=== PATIENT | male | born 1960 | race Two or more races ===

== ENCOUNTER 2019-09-18 13:53 | Emergency (ER) | payer BC ==
[2019-09-18] MEDS ORDERED: cefTRIAXone 1 GM in Premix Bag 1 BAG IV ONE (17:21)
[2019-09-18] MEDS ORDERED: Sodium Chloride 0.9% 1,000 ML IV ONE (17:21)
[2019-09-18] MEDS ORDERED: Sodium Chloride 0.9% 2.5 ML Syringe FLUSH PRN (17:21)
[2019-09-18] MEDS ORDERED: Sodium Chloride 0.9% 10 ML Syringe FLUSH PRN (17:21)
--- NOTE | 2019-09-18 17:32 | EDM.PDOC ---
ED HPI GENERAL MEDICAL PROBLEM - General Chief Complaint: Fever Stated Complaint: FEVER, FREQUENT URINATION Time Seen by Provider: 09/18/19 17:21 - History of Present Illness INITIAL COMMENTS - FREE TEXT/NARRATIVE: History of present illness: 59-year-old male presenting with not feeling well since this morning. Fever, T- max 102 when he arrived here. Has had some urinary symptoms and was recently treated for UTI by his primary care doctor. Also reports some flank pain/back pain and some blood in his urine. Has not yet been worked up for that. No body aches, cough, dyspnea, chest pain or other infectious signs or symptoms. Review of systems: As per history of present illness and below otherwise all systems reviewed and negative. Past medical history: As per history of present illness and as reviewed below otherwise noncontributory. Surgical history: As per history of present illness and as reviewed below otherwise noncontributory. Social history: No reported history of drug or alcohol abuse. Family history: As per history of present illness and as reviewed below otherwise noncontributory. Physical exam: GEN: no acute distress, well appearing HEENT: Atraumatic, normocephalic, mucous membranes moist, Neck: supple, nontender, trachea midline. Lungs: No respiratory distress. Heart: RRR Abdomen: Soft, nondistended, nontender. Back: nontender. No CVA tenderness. Extremities: Atraumatic. Neurovascularly intact. Neuro: Awake, alert, oriented. Neuro Exam nonfocal. Skin: warm, dry, no lesions Diagnostics: [] Therapeutics: [] MDM: Impression: [] Plan: [] Definitive disposition and diagnosis as appropriate pending reevaluation and review of above. burning with urination Pain Score (Numeric/FACES): 10 - Related Data Allergies Allergy/AdvReac Type Severity Reaction Status Date / Time No Known Allergies Allergy Verified 09/18/19 14:29 Home Meds: Home Meds Allopurinol [Zyloprim] 150 mg PO DAILY 09/18/19 [History] cephALEXin [Keflex] 1,000 mg PO BID #40 cap 09/18/19 [Rx] lisinopriL [Lisinopril] 20 mg PO DAILY 09/18/19 [History] Past Medical History Cardiovascular History: Reports: Hypertension Musculoskeletal History: Reports: Gout Endocrine/Metabolic History: Reports: Obesity/BMI 30+ - Past Surgical History HEENT Surgical History: Reports: Other (See Below) Social & Family History - Family History Family Medical History: Noncontributory - Tobacco Use Smoking Status *Q: Never Smoker - Recreational Drug Use Recreational Drug Use: No - Living Situation & Occupation Living situation: Reports: , with Spouse, with Family (Stepdaughter and her 5 children) Occupation: Employed (dedicated local truck driver) ED ROS GENERAL - Review of Systems Review Of Systems: See Below (See HPI) ED EXAM, GENERAL - Physical Exam Exam: See Below (See HPI) Course - Vital Signs Text/Narrative:: Fever, chills, dysuria, recent UTI 1 month ago. Also had some flank pain. Fever on arrival here as well. WBC is elevated, however creatinine is not elevated. UA does show moderate leuk esterase, nitrates, and white blood cells although few bacteria. Suspect partially treated UTI. Reviewed prior culture results and patient had E. coli on urine culture in July 2019 sensitive to cephalosporins. Overall well-appearing. Given IV fluids and Rocephin here. Chest x-ray negative. CT scan shows no acute kidney stones no acute intra-abdominal findings but possible remote kidney injury. Will refer for urology and primary care follow-up as patient has no local doctor here. Last Recorded V/S: Last Vital Signs Temp 98.9 F 09/18/19 20:35 Pulse 105 H 09/18/19 20:35 Resp 20 09/18/19 20:35 BP 111/77 09/18/19 20:35 Pulse Ox 92 L 09/18/19 20:35 - Orders/Labs/Meds Orders: Active Orders 24 hr Category Date Time Status CULTURE BLOOD [BC] Stat Lab 09/18/19 17:45 Received CULTURE BLOOD [BC] Stat Lab 09/18/19 17:45 Received CULTURE URINE [RM] Stat Lab 09/18/19 14:38 Received Blood Culture x2 Reflex Set [OM.PC] Stat Oth 09/18/19 17:22 Ordered Saline Lock Insert [OM.PC] Stat Oth 09/18/19 17:21 Ordered Labs: Laboratory Tests 09/18/19 09/18/19 09/18/19 Range/Units 14:38 17:45 17:45 WBC 12.79 H (4.0-11.0) K/uL RBC 4.96 (4.50-5.90) M/uL Hgb 14.5 (13.0-17.0) g/dL Hct 44.1 (38.0-50.0) % MCV 88.9 (80.0-98.0) fL MCH 29.2 (27.0-32.0) pg MCHC 32.9 (31.0-37.0) g/dL RDW Std Deviation 48.5 (28.0-62.0) fl RDW Coeff of Neville 15 (11.0-15.0) % Plt Count 205 (150-400) K/uL MPV 10.10 (7.40-12.00) fL Neut % (Auto) 84.5 H (48.0-80.0) % Lymph % (Auto) 6.1 L (16.0-40.0) % Smith % (Auto) 9.2 (0.0-15.0) % Eos % (Auto) 0.1 (0.0-7.0) % Baso % (Auto) 0.1 (0.0-1.5) % Neut # (Auto) 10.8 H (1.4-5.7) K/uL Lymph # (Auto) 0.8 (0.6-2.4) K/uL Smith # (Auto) 1.2 H (0.0-0.8) K/uL Eos # (Auto) 0.0 (0.0-0.7) K/uL Baso # (Auto) 0.0 (0.0-0.1) K/uL Nucleated RBC % 0.0 /100WBC Nucleated RBCs # 0 K/uL Sodium 133 L (136-148) mmol/L Potassium 4.0 (3.5-5.1) mmol/L Chloride 98 (98-107) mmol/L Carbon Dioxide 24.1 (21.0-32.0) mmol/L BUN 22 H (7.0-18.0) mg/dL Creatinine 1.3 (0.8-1.3) mg/dL Est Cr Clr Drug Dosing 61.61 mL/min Estimated GFR (MDRD) 56.1 ml/min Glucose 153 H (74-106) mg/dL Calcium 9.3 (8.5-10.1) mg/dL Total Bilirubin 0.8 (0.2-1.0) mg/dL AST 48 H (15-37) IU/L ALT 86 H (14-63) IU/L Alkaline Phosphatase 104 (46-116) U/L Total Protein 7.6 (6.4-8.2) g/dL Albumin 4.1 (3.4-5.0) g/dL Globulin 3.5 (2.6-4.0) g/dL Albumin/Globulin Ratio 1.2 (0.9-1.6) Urine Color YELLOW Urine Appearance SLT CLOUDY Urine pH 5.5 (5.0-8.0) Ur Specific Coulter 1.020 (1.001-1.035) Urine Protein TRACE H (NEGATIVE) mg/dL Urine Glucose (UA) NEGATIVE (NEGATIVE) mg/dL Urine Ketones NEGATIVE (NEGATIVE) mg/dL Urine Occult Blood SMALL H (NEGATIVE) Urine Nitrite POSITIVE H (NEGATIVE) Urine Bilirubin NEGATIVE (NEGATIVE) Urine Urobilinogen 0.2 (<2.0) EU/dL Ur Leukocyte Esterase MODERATE H (NEGATIVE) Urine RBC 5-8 (0-2/HPF) Urine WBC 50-60 (0-5/HPF) Ur Epithelial Cells RARE (NONE-FEW) Urine Bacteria FEW (NEGATIVE) Meds: Medications Discontinued Medications Generic Name Dose Route Start Last Admin Trade Name Freq PRN Reason Stop Dose Admin Sodium Chloride 1,000 mls @ 999 mls/hr 09/18/19 17:21 09/18/19 17:48 Normal Saline IV 09/18/19 18:21 999 mls/hr .Bolus ONE Administration Ceftriaxone Sodium/Dextrose 1 50 mls @ 100 mls/hr 09/18/19 17:21 09/18/19 17:48 gm/ Premix IV 09/18/19 17:50 100 mls/hr ONETIME ONE Administration Sodium Chloride 10 ml 09/18/19 17:21 09/18/19 17:48 Saline Flush FLUSH 10 ml ASDIRECTED PRN Administration Keep Vein Open Sodium Chloride 2.5 ml 09/18/19 17:21 09/18/19 17:48 Saline Flush FLUSH 2.5 ml ASDIRECTED PRN Administration Keep Vein Open - Re-Assessments/Exams Free Text/Narrative Re-Assessment/Exam: 09/18/19 20:02 Patient resting comfortably and in no acute distress. Discussed results with patient, he is feeling well and would like to be discharged. HR 100 on bedside monitor. Discussed plan of care directly with patient, including recommendation for PCP and urology f/u and need for abx including full completion. No signs of sepsis. Stable for d.c. Departure - Departure Time of Disposition: 20:15 Disposition: Home, Self-Care 01 Clinical Impression: UTI (urinary tract infection) - Discharge Information Prescriptions: cephALEXin [Keflex] 1,000 mg PO BID #40 cap Instructions: Antibiotic Medicine, Adult, [id number], Urinary Tract Infection, Adult, [id number], Infection Prevention in the Home, Fever, Adult, [id number] Referrals: Rizwan Gallagher MD [Primary Care Provider] - Forms: ED Department Discharge Additional Instructions: Take the antibiotics until all pills are gone. Drink plenty of water. Return to the ER if you have a high fever. Please follow-up with 1 of the primary clinics listed below. Please follow-up with the urologist listed below. The following information is given to patients seen in the emergency department who are being discharged to home. This information is to outline your options for follow-up care. We provide all patients seen in our emergency department with a follow-up referral. The need for follow-up, as well as the timing and circumstances, are variable depending upon the specifics of your emergency department visit. If you don't have a primary care physician on staff, we will provide you with a referral. We always advise you to contact your personal physician following an emergency department visit to inform them of the circumstance of the visit and for follow-up with them and/or the need for any referrals to a consulting sp ecialist. The emergency department will also refer you to a specialist when appropriate. This referral assures that you have the opportunity for follow-up care with a specialist. All of these measure are taken in an effort to provide you with optimal care, which includes your follow-up. Under all circumstances we always encourage you to contact your private physician who remains a resource for coordinating your care. When calling for follow-up care, please make the office aware that this follow-up is from your recent emergency room visit. If for any reason you are refused follow-up, please contact the [facility] Emergency Department at and asked to speak to the emergency department charge nurse. [facility] - Primary Care [address] [place] [id number] [facility] [address] [place] [address] [facility] [place] - Urology [address] [place] [address] Sepsis Event Note (ED) - Evaluation Sepsis Screening Result: No Definite Risk - Focused Exam Vital Signs: Vital Signs Temp Temp Pulse Resp BP Pulse Ox 09/18/19 20:35 98.9 F 105 H 20 111/77 92 L 09/18/19 19:15 99.3 F 105 H 20 111/72 94 L 09/18/19 17:31 98.6 F 112 H 18 134/82 96 09/18/19 14:26 102.8 F H 122 H 18 139/74 94 L - My Orders Last 24 Hours: My Active Orders 09/18/19 17:21 Saline Lock Insert [OM.PC] Stat 09/18/19 17:22 Blood Culture x2 Reflex Set [OM.PC] Stat 09/18/19 17:45 CULTURE BLOOD [BC] Stat CULTURE BLOOD [BC] Stat - Assessment/Plan Last 24 Hours: My Active Orders 09/18/19 17:21 Saline Lock Insert [OM.PC] Stat 09/18/19 17:22 Blood Culture x2 Reflex Set [OM.PC] Stat 09/18/19 17:45 CULTURE BLOOD [BC] Stat CULTURE BLOOD [BC] Stat
[2019-09-18 18:18] LABS: CARBON DIOXIDE,CO2 24.1 mmol/L (21.0-32.0)
--- NOTE | 2019-09-18 18:45 | CT ---
HISTORY: Hematuria. TECHNIQUE: Noncontrast CT abdomen and pelvis. COMPARISON: No prior. FINDINGS: There is no renal, ureteral or urinary bladder calculus. No hydronephrosis. On the left, there are areas of renal cortical parenchymal volume loss compatible with remote insult. Slight perinephric stranding. Urinary bladder does not appear overly distended. Prostatic calcifications may be postinflammatory. - There is fatty infiltration of the liver. Spleen size within normal limits. Adrenal glands are normal. No focal pancreatic abnormality. - No small bowel obstruction. No appendicitis. No diverticulitis. - No fluid collection or free intraperitoneal air. - No abdominal aortic aneurysm. - Degenerative changes of the spine. 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 Degenerative changes of the sacroiliac joints and hips. - No consolidation within the lung bases nor pleural effusion. IMPRESSION: 1. No urinary calculi. 2. No hydronephrosis. 3. On the left, there are areas of renal parenchymal volume loss compatible with remote insult. 4. Fatty infiltration of the liver. Dictated by Partha Mendoza MD @ 09/18/2019 6:43:46 PM Please note that all CT scans at this facility use dose modulation, iterative reconstruction, and/or weight-based dosing when appropriate to reduce radiation dose to as low as reasonably achievable. Dictated by: Partha Mendoza MD @ 09/18/2019 18:44:05 (Electronically Signed)
--- NOTE | 2019-09-18 18:47 | CR ---
HISTORY: Fever. TECHNIQUE: Two views of the chest. COMPARISON: No prior. FINDINGS: No focal lung infiltrate. No pulmonary edema. No pneumothorax or pleural effusion. Cardiac size and pulmonary vasculature are within normal limits. IMPRESSION: No acute disease. Dictated by Partha Mendoza MD @ 09/18/2019 6:45:43 PM Dictated by: Partha Mendoza MD @ 09/18/2019 18:45:48 (Electronically Signed)
[2019-09-18 19:16] VITALS: PULSE 105
[2019-09-18 21:05] VITALS: BP 111/77
== END 2019-09-18 20:35 | disposition home or self-care (01) ==
LOC: MW.ED 13:53
DX: N39.0 Urinary tract infection, site not specified (principal); I10 Essential (primary) hypertension; E66.9 Obesity, unspecified; Z68.39 Body mass index [BMI] 39.0-39.9, adult; Z79.899 Other long term (current) drug therapy
CPT/HCPCS: 36415; 71046; 74176; 80053; 81001; 85025; 87040; 87086; 87088; 87186; 96365; 99284; J0696; J7030

== ENCOUNTER 2019-11-07 16:40 | Inpatient (IN) | payer BC, OTHER ==
[2019-11-07] MEDS ORDERED: Sodium Chloride 0.9% 10 ML Syringe FLUSH PRN (16:57)
[2019-11-07] MEDS ORDERED: Sodium Chloride 0.9% 2.5 ML Syringe FLUSH PRN (16:57)
[2019-11-07] MEDS ORDERED: Sodium Chloride 0.9% 1,000 ML IV ONE (17:00)
[2019-11-07 17:41] LABS: CARBON DIOXIDE,CO2 23.7 mmol/L (21.0-32.0); POTASSIUM,K 4.5 mmol/L (3.5-5.1)
[2019-11-07] MEDS ORDERED: Meropenem 1 GM in Sodium Chloride 0.9% 100 ML IV ONE (17:58)
--- NOTE | 2019-11-07 18:01 | CR ---
Chest: PA and lateral views of the chest were obtained. Comparison: Prior chest x-ray of 09/18/19. Heart size and mediastinum are normal. Lungs are clear with no acute parenchymal change. Bony structures are unremarkable. Impression: 1. Nothing acute is seen on 2 view chest x-ray. Diagnostic code #1 This report was dictated in MDT
--- NOTE | 2019-11-07 18:46 | CT ---
CT abdomen and pelvis Technique: Multiple axial sections were obtained from above the dome of the diaphragm inferiorly through the pubic symphysis. Intravenous and oral contrast not utilized. Comparison: Previous CT abdomen and pelvis study of 09/18/19 is available. Findings: Visualized lung bases show nothing acute. Fatty infiltration seen throughout the liver. Spleen appears within normal limits. Adrenal glands show no nodule. Pancreas shows no discrete abnormality. Gallbladder contains no calcified gallstones. Left kidney is atrophied as compared to the right side which is stable. No ureteral dilatation or ureteral calculi are seen. Aorta shows no aneurysm. No retroperitoneal adenopathy or mesenteric abnormalities are seen. Appendix is seen which is normal. No pelvic mass or adenopathy is seen. Prostate calcifications are noted. No free fluid or inflammatory change is seen. No bowel dilatation is appreciated. Bone window settings were reviewed. Degenerative change is noted at L4-5 and L5-S1. 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 These findings are stable from previous exam. Fat-containing umbilical hernia is noted which is stable. Impression: 1. Fatty infiltration within the liver. Other findings as noted above. No significant change from prior CT abdomen and pelvis study. 2. Current study shows no renal calculi, ureteral dilatation or ureteral stone. Nothing acute is appreciated. Diagnostic code #2 This report was dictated in MDT
--- NOTE | 2019-11-07 19:13 | EDM.PDOC ---
ED HPI GENERAL MEDICAL PROBLEM - General Chief Complaint: Fever Stated Complaint: REFER FROM CLINIC, HIGH FEVER Time Seen by Provider: 11/07/19 16:56 Source of Information: Reports: Patient History Limitations: Reports: No Limitations - History of Present Illness INITIAL COMMENTS - FREE TEXT/NARRATIVE: HISTORY AND PHYSICAL: History of present illness: Patient is a 59-year-old male who presents to the ED today from the clinic for concern of kidney infection. Patient did have some lab work and urine done in the clinic before being sent over to the emergency room. Patient states that approximately 1 month ago he had a urinary tract infection and was given antibiotics and went home. Patient states that initially he felt better but over the past 1 to 2 weeks he has began having more low back pain and burning with urination. Patient states he went back to the clinic today and was instructed to come to the emergency room because of his heart rate and he had a fever. Patient states he has not taken anything for his symptoms and denies any other symptoms or concerns. Patient denies chest pain, shortness of breath, or cough. Denies headache, neck stiff ness, change in vision, syncope, or near syncope. Denies nausea, vomiting, abdominal pain, diarrhea, constipation. Has not noted any blood in urine or stool. Patient has been eating and drinking appropriately. Review of systems: As per history of present illness and below otherwise all systems reviewed and negative. Past medical history: As per history of present illness and as reviewed below otherwise non contributory. Surgical history: As per history of present illness and as reviewed below otherwise noncontributory. Social history: See social history for further information Family history: As per history of present illness and as reviewed below otherwise noncontributory. Physical exam: General: Patient is alert, oriented, and in no acute distress. Patient laying comfortably on exam table. HEENT: Atraumatic, normocephalic, pupils equal and reactive bilaterally, negative for conjunctival pallor or scleral icterus, mucous membranes moist, TMs normal bilaterally, throat clear, neck supple, nontender, trachea midline. No drooling or trismus noted. No meningeal signs. No hot potato voice noted. Lungs: Clear to auscultation, breath sounds equal bilaterally, chest nontender. Heart: S1S2, regular rate and rhythm without overt murmur Abdomen: Soft, nondistended, nontender. Negative for masses or hepatosplenomegaly. Positive for costovertebral tenderness of the right. Pelvis: Stable nontender. Genitourinary: Deferred. Rectal: Deferred. Skin: Intact, warm, dry. No lesions or rashes noted. Extremities: Atraumatic, negative for cords or calf pain. Neurovascular unremarkable. Neuro: Awake, alert, oriented. Cranial nerves II through XII unremarkable. Cerebellum unremarkable. Motor and sensory unremarkable throughout. Exam nonfocal. Notes: Patient afebrile here but report from clinic shows temp of 102.4. Urinalysis from the clinic does show an overt urinary tract infection. Empiric antibiotics started at this time. Patient initially tachycardic in 130-140 but does improve with abx and fluids to 100-110 Dr. Howard was contacted and accepting of admission for observation on telemetry. Voices understanding and is agreeable to plan of care. Denies any further questions or concerns at this time. Diagnostics: CBC, CMP, UA, lactate, blood cultures x2, lipase, abdominal pelvic CT without contrast, covid Therapeutics: Saline, meropenem, vancomycin Impression: Acute pyelonephritis r/o sepsis Plan: Admission to observation to Dr. Howard on telemetry Definitive disposition and diagnosis as appropriate pending reevaluation and review of above. bilateral flank Pain Score (Numeric/FACES): 10 - Related Data Allergies Allergy/AdvReac Type Severity Reaction Status Date / Time No Known Allergies Allergy Verified 11/07/19 20:44 Home Meds: Home Meds Allopurinol [Zyloprim] 300 mg PO DAILY 09/18/19 [History] lisinopriL [Lisinopril] 20 mg PO DAILY 09/18/19 [History] Past Medical History Cardiovascular History: Reports: Hypertension Musculoskeletal History: Reports: Gout Endocrine/Metabolic History: Reports: Obesity/BMI 30+ - Past Surgical History HEENT Surgical History: Reports: Other (See Below) Social & Family History - Family History Family Medical History: Noncontributory - Tobacco Use Smoking Status *Q: Never Smoker - Recreational Drug Use Recreational Drug Use: No - Living Situation & Occupation Living situation: Reports: , with Spouse, with Family (Stepdaughter and her 5 children) Occupation: Employed ([employer] flatbed truck driver) ED ROS GENERAL - Review of Systems Review Of Systems: Comprehensive ROS is negative, except as noted in HPI. ED EXAM, GENERAL - Physical Exam Exam: See Below (see dictation) Course - Vital Signs Last Recorded V/S: Last Vital Signs Temp 99.4 F 11/07/19 20:42 Pulse 114 H 11/07/19 20:42 Resp 18 11/07/19 20:42 BP 118/67 11/07/19 20:42 Pulse Ox 99 11/07/19 20:42 - Orders/Labs/Meds Orders: Active Orders 24 hr Category Date Time Status EKG Documentation Completion [RC] STAT Care 11/07/19 17:53 Active CULTURE URINE [RM] Stat Lab 11/07/19 20:00 Received Sodium Chloride 0.9% [Saline Flush] Med 11/07/19 16:57 Active 10 ml FLUSH ASDIRECTED PRN Sodium Chloride 0.9% [Saline Flush] Med 11/07/19 16:57 Active 2.5 ml FLUSH ASDIRECTED PRN Blood Culture x2 Reflex Set [OM.PC] Stat Ot 11/07/19 16:59 Ordered Saline Lock Insert [OM.PC] Stat Ot 11/07/19 16:57 Ordered Medication Orders Acetaminophen (Tylenol) 650 mg PO Q4H PRN PRN Reason: Pain (Mild 1-3)/fever Allopurinol (Zyloprim) 300 mg PO DAILY [facility] Enoxaparin Sodium (Lovenox) 40 mg SUBCUT Q24H [facility] Last Admin: 11/07/19 21:08 Dose: 40 mg Documented by: MIGUEL ANGEL Lactated Ringer's (Ringers, Lactated) 1,000 mls @ 125 mls/hr IV ASDIRECTED [facility] Last Admin: 11/07/19 21:09 Dose: 125 mls/hr Documented by: MIGUEL ANGEL Piperacillin Sod/Tazobactam (Sod 3.375 gm/ Sodium Chloride) 50 mls @ 100 mls/hr IV Q8H [facility] Last Admin: 11/07/19 21:39 Dose: 100 mls/hr Documented by: MIGUEL ANGEL Morphine Sulfate (Morphine) 2 mg IVPUSH Q4H PRN PRN Reason: Pain (severe 7-10) Stop: 11/08/19 20:04 Ondansetron HCl (Zofran) 4 mg IVPUSH Q4H PRN PRN Reason: Nausea/Vomiting Sodium Chloride (Saline Flush) 10 ml FLUSH ASDIRECTED PRN PRN Reason: Keep Vein Open Last Admin: 11/07/19 17:06 Dose: 10 ml Documented by: MAVERICK Sodium Chloride (Saline Flush) 2.5 ml FLUSH ASDIRECTED PRN PRN Reason: Keep Vein Open Last Admin: 11/07/19 17:06 Dose: 2.5 ml Documented by: [email or web address] Labs: Laboratory Tests 11/07/19 11/07/19 11/07/19 Range/Units 17:00 17:00 17:00 WBC 15.02 H (4.0-11.0) K/uL RBC 4.99 (4.50-5.90) M/uL Hgb 14.7 (13.0-17.0) g/dL Hct 44.2 (38.0-50.0) % MCV 88.6 (80.0-98.0) fL MCH 29.5 (27.0-32.0) pg MCHC 33.3 (31.0-37.0) g/dL RDW Std Deviation 48.1 (28.0-62.0) fl RDW Coeff of Neville 15 (11.0-15.0) % Plt Count 263 (150-400) K/uL MPV 10.30 (7.40-12.00) fL Neut % (Auto) 82.7 H (48.0-80.0) % Lymph % (Auto) 4.9 L (16.0-40.0) % Blanco % (Auto) 12.0 (0.0-15.0) % Eos % (Auto) 0.2 (0.0-7.0) % Baso % (Auto) 0.2 (0.0-1.5) % Neut # (Auto) 12.4 H (1.4-5.7) K/uL Lymph # (Auto) 0.7 (0.6-2.4) K/uL Blanco # (Auto) 1.8 H (0.0-0.8) K/uL Eos # (Auto) 0.0 (0.0-0.7) K/uL Baso # (Auto) 0.0 (0.0-0.1) K/uL Nucleated RBC % 0.0 /100WBC Nucleated RBCs # 0 K/uL Lactate 1.4 (0.20-2.00) mmol/L Sodium 133 L (136-148) mmol/L Potassium 4.5 (3.5-5.1) mmol/L Chloride 97 L (98-107) mmol/L Carbon Dioxide 23.7 (21.0-32.0) mmol/L BUN 20 H (7.0-18.0) mg/dL Creatinine 1.3 (0.8-1.3) mg/dL Est Cr Clr Drug Dosing 61.61 mL/min Estimated GFR (MDRD) 56.1 ml/min Glucose 126 H (74-106) mg/dL Calcium 8.5 (8.5-10.1) mg/dL Total Bilirubin 1.0 (0.2-1.0) mg/dL AST 27 (15-37) IU/L ALT 54 (14-63) IU/L Alkaline Phosphatase 114 (46-116) U/L Total Protein 7.9 (6.4-8.2) g/dL Albumin 3.5 (3.4-5.0) g/dL Globulin 4.4 H (2.6-4.0) g/dL Albumin/Globulin Ratio 0.8 L (0.9-1.6) Lipase 82 (73-393) U/L SARS Virus RNA (PCR) (NEGATIVE) 11/07/19 Range/Units 18:15 WBC (4.0-11.0) K/uL RBC (4.50-5.90) M/uL Hgb (13.0-17.0) g/dL Hct (38.0-50.0) % MCV (80.0-98.0) fL MCH (27.0-32.0) pg MCHC (31.0-37.0) g/dL RDW Std Deviation (28.0-62.0) fl RDW Coeff of Neville (11.0-15.0) % Plt Count (150-400) K/uL MPV (7.40-12.00) fL Neut % (Auto) (48.0-80.0) % Lymph % (Auto) (16.0-40.0) % Blanco % (Auto) (0.0-15.0) % Eos % (Auto) (0.0-7.0) % Baso % (Auto) (0.0-1.5) % Neut # (Auto) (1.4-5.7) K/uL Lymph # (Auto) (0.6-2.4) K/uL Blanco # (Auto) (0.0-0.8) K/uL Eos # (Auto) (0.0-0.7) K/uL Baso # (Auto) (0.0-0.1) K/uL Nucleated RBC % /100WBC Nucleated RBCs # K/uL Lactate (0.20-2.00) mmol/L Sodium (136-148) mmol/L Potassium (3.5-5.1) mmol/L Chloride (98-107) mmol/L Carbon Dioxide (21.0-32.0) mmol/L BUN (7.0-18.0) mg/dL Creatinine (0.8-1.3) mg/dL Est Cr Clr Drug Dosing mL/min Estimated GFR (MDRD) ml/min Glucose (74-106) mg/dL Calcium (8.5-10.1) mg/dL Total Bilirubin (0.2-1.0) mg/dL AST (15-37) IU/L ALT (14-63) IU/L Alkaline Phosphatase (46-116) U/L Total Protein (6.4-8.2) g/dL Albumin (3.4-5.0) g/dL Globulin (2.6-4.0) g/dL Albumin/Globulin Ratio (0.9-1.6) Lipase (73-393) U/L SARS Virus RNA (PCR) NEGATIVE (NEGATIVE) Meds: Medications Generic Name Dose Route Start Last Admin Trade Name Freq PRN Reason Stop Dose Admin Acetaminophen 650 mg 11/07/19 20:01 Tylenol PO Q4H PRN Pain (Mild 1-3)/fever Allopurinol 300 mg 11/08/19 09:00 Zyloprim PO DAILY [facility] Enoxaparin Sodium 40 mg 11/07/19 20:15 11/07/19 21:08 Lovenox SUBCUT 40 mg Q24H [facility] Administration Lactated Ringer's 1,000 mls @ 125 mls/hr 11/07/19 20:15 11/07/19 21:09 Ringers, Lactated IV 125 mls/hr ASDIRECTED [facility] Administration Piperacillin Sod/Tazobactam 50 mls @ 100 mls/hr 11/07/19 22:00 11/07/19 21:39 Sod 3.375 gm/ Sodium Chloride IV 100 mls/hr Q8H [facility] Administration Morphine Sulfate 2 mg 11/07/19 20:01 Morphine IVPUSH 11/08/19 20:04 Q4H PRN Pain (severe 7-10) Ondansetron HCl 4 mg 11/07/19 20:01 Zofran IVPUSH Q4H PRN Nausea/Vomiting Sodium Chloride 10 ml 11/07/19 16:57 11/07/19 17:06 Saline Flush FLUSH 10 ml ASDIRECTED PRN Administration Keep Vein Open Sodium Chloride 2.5 ml 11/07/19 16:57 11/07/19 17:06 Saline Flush FLUSH 2.5 ml ASDIRECTED PRN Administration Keep Vein Open Discontinued Medications Generic Name Dose Route Start Last Admin Trade Name Freq PRN Reason Stop Dose Admin Sodium Chloride 1,000 mls @ 999 mls/hr 11/07/19 17:00 11/07/19 17:06 Normal Saline IV 11/07/19 18:00 999 mls/hr STAT ONE Administration Meropenem 1 gm/ Sodium 100 mls @ 200 mls/hr 11/07/19 17:58 11/07/19 18:35 Chloride IV 11/07/19 18:27 200 mls/hr ONETIME ONE Administration Vancomycin HCl 1.25 gm/ Sodium 250 mls @ 167 mls/hr 11/07/19 17:59 Chloride IV 11/07/19 19:28 ONETIME ONE Vancomycin HCl 1.25 gm/ Sodium 250 mls @ 167 mls/hr 11/07/19 18:02 11/07/19 18:36 Chloride IV 11/07/19 19:31 167 mls/hr ONETIME ONE Administration Ceftriaxone Sodium/Dextrose 1 50 mls @ 100 mls/hr 11/08/19 09:00 gm/ Premix IV Q24H [facility] Departure - Departure Time of Disposition: 19:12 Disposition: Refer to Observation Clinical Impression: Acute pyelonephritis - Discharge Information Sepsis Event Note (ED) - Evaluation Sepsis Screening Result: Possible Sepsis Risk - Focused Exam Vital Signs: Vital Signs Temp Pulse Resp BP Pulse Ox 11/07/19 18:38 120/76 11/07/19 17:54 106 H 140/99 H 95 11/07/19 17:09 122 H 117/76 94 L 11/07/19 16:51 97.8 F 138 H 18 138/83 92 L - My Orders Last 24 Hours: My Active Orders 11/07/19 16:57 Sodium Chloride 0.9% [Saline Flush] 10 ml FLUSH ASDIRECTED PRN Sodium Chloride 0.9% [Saline Flush] 2.5 ml FLUSH ASDIRECTED PRN Saline Lock Insert [OM.PC] Stat 11/07/19 16:59 Blood Culture x2 Reflex Set [OM.PC] Stat 11/07/19 17:53 EKG Documentation Completion [RC] STAT 11/07/19 20:00 CULTURE URINE [RM] Stat - Assessment/Plan Last 24 Hours: My Active Orders 11/07/19 16:57 Sodium Chloride 0.9% [Saline Flush] 10 ml FLUSH ASDIRECTED PRN Sodium Chloride 0.9% [Saline Flush] 2.5 ml FLUSH ASDIRECTED PRN Saline Lock Insert [OM.PC] Stat 11/07/19 16:59 Blood Culture x2 Reflex Set [OM.PC] Stat 11/07/19 17:53 EKG Documentation Completion [RC] STAT 11/07/19 20:00 CULTURE URINE [RM] Stat
[2019-11-07] MEDS ORDERED: Ondansetron 4 MG/2 ML SDV IVPUSH PRN (20:01)
[2019-11-07] MEDS ORDERED: Morphine 10 MG/ML Syringe IVPUSH PRN (20:01)
--- NOTE | 2019-11-07 20:11 | PCM.HP.2 ---
H&P History of Present Illness - General Date of Service: 11/07/19 Admit Problem/Dx: Admission Diagnosis/Problem Admission Diagnosis/Problem Acute pyelonephritis - History of Present Illness Initial Comments - Free Text/Narative: Patient is a 59-year-old male with PMH of obesity, gout, HTN who presents to the ED today from her PCPs office due to the concern of "kidney infection". Patient states that he went to clinic where he was told he has a fever (102.4), with high heart rate, his urine analysis was positive for UTI, he was instructed to go to ER. Patient states that approximately 1 month ago he had a urinary tract infection and was given antibiotics. Patient states he responded well to antibiotics but now over past 2 weeks he has began having more low back pain and burning with urination. Patient states he has not taken anything for his symptoms and denies any other symptoms or concerns. Patient denies chest pain, shortness of breath, or cough. Denies headache, neck stiff ness, change in vision, syncope, or near syncope. Denies nausea, vomiting, abdominal pain, diarrhea, constipation. Has not noted any blood in urine or stool. Patient has been eating and drinking appropriately. In the ER lab work shows leucocytosis, with elevated heart rate in 130s, received IV fluids and IV antibiotics, CT abdomen showed no stone or blockage, did show fatty liver. He was admitted for further management. bilateral flank Pain Score (Numeric/FACES): 10 - Related Data Allergies/Adverse Reactions: Allergies Allergy/AdvReac Type Severity Reaction Status Date / Time No Known Allergies Allergy Verified 11/07/19 20:44 Home Medications: Home Meds Allopurinol [Zyloprim] 300 mg PO DAILY 09/18/19 [History] lisinopriL [Lisinopril] 20 mg PO DAILY 09/18/19 [History] Past Medical History Cardiovascular History: Reports: Hypertension Musculoskeletal History: Reports: Gout Endocrine/Metabolic History: Reports: Obesity/BMI 30+ - Past Surgical History HEENT Surgical History: Reports: Other (See Below) Social & Family History - Family History Family Medical History: Noncontributory - Tobacco Use Smoking Status *Q: Never Smoker - Recreational Drug Use Recreational Drug Use: No - Living Situation & Occupation Living situation: Reports: , with Spouse, with Family (Stepdaughter and her 5 children) 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 Denies: Incontinence Musculoskeletal: Reports: Back Pain. Denies: Shoulder Pain, Arm Pain Skin: Denies: Cyanosis, Jaundice, Mottled Exam - Exam Exam: See Below - Vital Signs Vital Signs: Last Vital Signs Temp 36.6 C 11/07/19 16:51 Pulse 106 H 11/07/19 17:54 Resp 18 11/07/19 16:51 BP 120/76 11/07/19 18:38 Pulse Ox 95 11/07/19 17:54 Weight: 123.831 kg - Exam General: Alert, Oriented Neck: Supple, Trachea Midline Lungs: Clear to Auscultation, Normal Respiratory Effort Cardiovascular: Regular Rate, Regular Rhythm GI/Abdominal Exam: Normal Bowel Sounds, Soft, Non-Tender. No: No Distention, Abnormal Bowel Sounds - Patient Data Lab Results Last 24 hrs: Laboratory Results - last 24 hr 11/07/19 11/07/19 11/07/19 Range/Units 17:00 17:00 17:00 WBC 15.02 H (4.0-11.0) K/uL RBC 4.99 (4.50-5.90) M/uL Hgb 14.7 (13.0-17.0) g/dL Hct 44.2 (38.0-50.0) % MCV 88.6 (80.0-98.0) fL MCH 29.5 (27.0-32.0) pg MCHC 33.3 (31.0-37.0) g/dL RDW Std Deviation 48.1 (28.0-62.0) fl RDW Coeff of Neville 15 (11.0-15.0) % Plt Count 263 (150-400) K/uL MPV 10.30 (7.40-12.00) fL Neut % (Auto) 82.7 H (48.0-80.0) % Lymph % (Auto) 4.9 L (16.0-40.0) % Baker % (Auto) 12.0 (0.0-15.0) % Eos % (Auto) 0.2 (0.0-7.0) % Baso % (Auto) 0.2 (0.0-1.5) % Neut # (Auto) 12.4 H (1.4-5.7) K/uL Lymph # (Auto) 0.7 (0.6-2.4) K/uL Baker # (Auto) 1.8 H (0.0-0.8) K/uL Eos # (Auto) 0.0 (0.0-0.7) K/uL Baso # (Auto) 0.0 (0.0-0.1) K/uL Nucleated RBC % 0.0 /100WBC Nucleated RBCs # 0 K/uL Lactate 1.4 (0.20-2.00) mmol/L Sodium 133 L (136-148) mmol/L Potassium 4.5 (3.5-5.1) mmol/L Chloride 97 L (98-107) mmol/L Carbon Dioxide 23.7 (21.0-32.0) mmol/L BUN 20 H (7.0-18.0) mg/dL Creatinine 1.3 (0.8-1.3) mg/dL Est Cr Clr Drug Dosing 61.61 mL/min Estimated GFR (MDRD) 56.1 ml/min Glucose 126 H (74-106) mg/dL Calcium 8.5 (8.5-10.1) mg/dL Total Bilirubin 1.0 (0.2-1.0) mg/dL AST 27 (15-37) IU/L ALT 54 (14-63) IU/L Alkaline Phosphatase 114 (46-116) U/L Total Protein 7.9 (6.4-8.2) g/dL Albumin 3.5 (3.4-5.0) g/dL Globulin 4.4 H (2.6-4.0) g/dL Albumin/Globulin Ratio 0.8 L (0.9-1.6) Lipase 82 (73-393) U/L SARS Virus RNA (PCR) (NEGATIVE) 11/07/19 Range/Units 18:15 WBC (4.0-11.0) K/uL RBC (4.50-5.90) M/uL Hgb (13.0-17.0) g/dL Hct (38.0-50.0) % MCV (80.0-98.0) fL MCH (27.0-32.0) pg MCHC (31.0-37.0) g/dL RDW Std Deviation (28.0-62.0) fl RDW Coeff of Neville (11.0-15.0) % Plt Count (150-400) K/uL MPV (7.40-12.00) fL Neut % (Auto) (48.0-80.0) % Lymph % (Auto) (16.0-40.0) % Baker % (Auto) (0.0-15.0) % Eos % (Auto) (0.0-7.0) % Baso % (Auto) (0.0-1.5) % Neut # (Auto) (1.4-5.7) K/uL Lymph # (Auto) (0.6-2.4) K/uL Baker # (Auto) (0.0-0.8) K/uL Eos # (Auto) (0.0-0.7) K/uL Baso # (Auto) (0.0-0.1) K/uL Nucleated RBC % /100WBC Nucleated RBCs # K/uL Lactate (0.20-2.00) mmol/L Sodium (136-148) mmol/L Potassium (3.5-5.1) mmol/L Chloride (98-107) mmol/L Carbon Dioxide (21.0-32.0) mmol/L BUN (7.0-18.0) mg/dL Creatinine (0.8-1.3) mg/dL Est Cr Clr Drug Dosing mL/min Estimated GFR (MDRD) ml/min Glucose (74-106) mg/dL Calcium (8.5-10.1) mg/dL Total Bilirubin (0.2-1.0) mg/dL AST (15-37) IU/L ALT (14-63) IU/L Alkaline Phosphatase (46-116) U/L Total Protein (6.4-8.2) g/dL Albumin (3.4-5.0) g/dL Globulin (2.6-4.0) g/dL Albumin/Globulin Ratio (0.9-1.6) Lipase (73-393) U/L SARS Virus RNA (PCR) NEGATIVE (NEGATIVE) Result Diagrams: 11/08/19 06:08 11/08/19 06:08 Sepsis Event Note - Evaluation Sepsis Screening Result: Possible Sepsis Risk - Focused Exam Vital Signs: Vital Signs Temp Pulse Resp BP Pulse Ox 11/07/19 18:38 120/76 11/07/19 17:54 106 H 140/99 H 95 11/07/19 17:09 122 H 117/76 94 L 11/07/19 16:51 36.6 C 138 H 18 138/83 92 L - Problem List (1) Acute pyelonephritis SNOMED Code(s): 44407095 ICD Code: N10 - ACUTE PYELONEPHRITIS Status: Acute Current Visit: Yes (2) Obesity SNOMED Code(s): 574315023, 403249048 ICD Code: E66.9 - OBESITY, UNSPECIFIED Status: Acute Current Visit: Yes (3) Gout SNOMED Code(s): 52304339 ICD Code: M10.9 - GOUT, UNSPECIFIED Status: Acute Current Visit: Yes (4) HTN (hypertension) SNOMED Code(s): 78756586 ICD Code: I10 - ESSENTIAL (PRIMARY) HYPERTENSION Status: Acute Current Visit: Yes Problem List Initiated/Reviewed/Updated: Yes Orders Last 24hrs: Active Orders 24 hr Category Date Time Status Admission Status [Patient Status] [ADT] Stat ADT 11/07/19 19:00 Active Ambulate [RC] ASDIRECTED Care 11/07/19 20:01 Ordered Antiembolic Devices [RC] PER UNIT ROUTINE Care 11/07/19 20:04 Ordered EKG Documentation Completion [RC] STAT Care 11/07/19 17:53 Active Oxygen Therapy [RC] PRN Care 11/07/19 20:01 Ordered Pulse Oximetry [RC] PRN Care 11/07/19 20:04 Ordered VTE/DVT Education [RC] PER UNIT ROUTINE Care 11/07/19 20:01 Ordered Vital Signs [RC] Q4H Care 11/07/19 20:01 Ordered Abdomen Pelvis wo Cont [CT] Stat Exams 11/07/19 17:53 Taken UA RFX ARTI AND CULT IF INDIC [URIN] Stat Lab 11/07/19 Ordered Acetaminophen [TylenoL] Med 11/07/19 20:01 Ordered 650 mg PO Q4H PRN Enoxaparin [Lovenox] Med 11/07/19 20:15 Ordered 40 mg SUBCUT Q24H Lactated Ringers @ 125 MLS/HR(1000ml) Med 11/07/19 20:15 Ordered Lactated Ringers [Ringers, Lactated] 1,000 ml IV ASDIRECTED Morphine Med 11/07/19 20:01 Ordered 2 mg IVPUSH Q4H PRN Ondansetron [Zofran] Med 11/07/19 20:01 Ordered 4 mg IVPUSH Q4H PRN Sodium Chloride 0.9% [Saline Flush] Med 11/07/19 16:57 Active 10 ml FLUSH ASDIRECTED PRN Sodium Chloride 0.9% [Saline Flush] Med 11/07/19 16:57 Active 2.5 ml FLUSH ASDIRECTED PRN cefTRIAXone [Rocephin in Dextrose,Iso-Osm 1 GM/50 ML] 1 Med 11/08/19 09:00 Ordered gm Premix Bag 1 bag IV Q24H Blood Culture x2 Reflex Set [OM.PC] Stat Oth 11/07/19 16:59 Ordered Saline Lock Insert [OM.PC] Stat Oth 11/07/19 16:57 Ordered Sequential Compression Device [OM.PC] Per Unit Routine Oth 11/07/19 20:04 Ordered Resuscitation Status Routine Resus Stat 11/07/19 20:01 Ordered Medication Orders Acetaminophen (Tylenol) 650 mg PO Q4H PRN PRN Reason: Pain (Mild 1-3)/fever Enoxaparin Sodium (Lovenox) 40 mg SUBCUT Q24H [facility] Lactated Ringer's (Ringers, Lactated) 1,000 mls @ 125 mls/hr IV ASDIRECTED [facility] Ceftriaxone Sodium/Dextrose 1 (gm/ Premix) 50 mls @ 100 mls/hr IV Q24H [facility] Morphine Sulfate (Morphine) 2 mg IVPUSH Q4H PRN PRN Reason: Pain (severe 7-10) Stop: 11/08/19 20:04 Ondansetron HCl (Zofran) 4 mg IVPUSH Q4H PRN PRN Reason: Nausea/Vomiting Sodium Chloride (Saline Flush) 10 ml FLUSH ASDIRECTED PRN PRN Reason: Keep Vein Open Last Admin: 11/07/19 17:06 Dose: 10 ml Documented by: MAVERICK Sodium Chloride (Saline Flush) 2.5 ml FLUSH ASDIRECTED PRN PRN Reason: Keep Vein Open Last Admin: 11/07/19 17:06 Dose: 2.5 ml Documented by: MAVERICK Assessment/Plan Comment:: 59 y/o M Admitted for Acute pyelonephritis, sepsis cont IV antibiotics F/u on urine culture and blood culture Lactate normal Tachycardia improved significantly cont IV fluids Cardiac diet Hold antihypertensives over night cont other home meds SCD for dvt ppx Full code
[2019-11-07] MEDS: Enoxaparin 40 MG/0.4 ML Syringe SUBCUT SCH (21:08)
[2019-11-07] MEDS: Lactated Ringers 1,000 ML IV SCH (21:09)
[2019-11-07] MEDS: Piperacillin/Tazobactam 3.375 GM in Sodium Chloride 0.9% 50 ML IV SCH (21:39)
[2019-11-08] MEDS: Acetaminophen 325 MG Tab PO PRN ×4 (01:55→21:20)
[2019-11-08] MEDS: Piperacillin/Tazobactam 3.375 GM in Sodium Chloride 0.9% 50 ML IV SCH ×3 (06:03→21:23)
[2019-11-08 06:33] LABS: BLOOD UREA NITROGEN,BUN 17 mg/dL (7.0-18.0); CARBON DIOXIDE,CO2 22.9 mmol/L (21.0-32.0); CHLORIDE,CL 100 mmol/L (98-107); GLUCOSE RANDOM 111 mg/dL (74-106); POTASSIUM,K 4.1 mmol/L (3.5-5.1); SODIUM,NA 135 mmol/L (136-148)
[2019-11-08] MEDS: Allopurinol 300 MG Tab PO SCH (08:39)
[2019-11-08] MEDS ORDERED: cefTRIAXone 1 GM in Premix Bag 1 BAG IV SCH (09:00)
[2019-11-08] MEDS: Lactated Ringers 1,000 ML IV SCH ×2 (10:09→18:46)
--- NOTE | 2019-11-08 10:31 | PCM.PN ---
- General Info Date of Service: 11/08/19 Admission Dx/Problem (Free Text): Admission Diagnosis/Problem Admission Diagnosis/Problem Acute Complicated UTI suspected pyelonephritis vs prostatitis Subjective Update: Feeling slightly improved from overnight. No chest pain or SOB. Voiding better, reports yesterday stream was weak and now he is urinating very easily. No flank pain. No diarrhea. Eating and drinking ok. Functional Status: Reports: Pain Controlled, Tolerating Diet, Ambulating, Urinating - Review of Systems General: Reports: Fever, Fatigue, Malaise HEENT: Reports: No Symptoms, Other (no neck pain). Denies: Sore Throat Pulmonary: Reports: No Symptoms. Denies: Shortness of Breath Cardiovascular: Reports: No Symptoms. Denies: Chest Pain Gastrointestinal: Reports: No Symptoms. Denies: Abdominal Pain, Nausea, Vomiting Genitourinary: Reports: Dysuria, Burning. Denies: Flank Pain Musculoskeletal: Reports: No Symptoms Neurological: Reports: No Symptoms Psychiatric: Reports: No Symptoms - Patient Data Vitals - Most Recent: Last Vital Signs Temp 99.7 F 11/08/19 08:40 Pulse 94 11/08/19 07:45 Resp 18 11/08/19 07:45 BP 112/66 11/08/19 07:45 Pulse Ox 93 L 11/08/19 07:45 Weight - Most Recent: 123.831 kg I&O - Last 24 Hours: Intake & Output 11/07/19 11/08/19 11/08/19 22:59 06:59 14:59 Intake Total 926 Output Total 700 Balance 226 Lab Results Last 24 Hours: Laboratory Results - last 24 hr 11/07/19 11/07/19 11/07/19 Range/Units 17:00 17:00 17:00 WBC 15.02 H (4.0-11.0) K/uL RBC 4.99 (4.50-5.90) M/uL Hgb 14.7 (13.0-17.0) g/dL Hct 44.2 (38.0-50.0) % MCV 88.6 (80.0-98.0) fL MCH 29.5 (27.0-32.0) pg MCHC 33.3 (31.0-37.0) g/dL RDW Std Deviation 48.1 (28.0-62.0) fl RDW Coeff of Neville 15 (11.0-15.0) % Plt Count 263 (150-400) K/uL MPV 10.30 (7.40-12.00) fL Neut % (Auto) 82.7 H (48.0-80.0) % Lymph % (Auto) 4.9 L (16.0-40.0) % [place] % (Auto) 12.0 (0.0-15.0) % Eos % (Auto) 0.2 (0.0-7.0) % Baso % (Auto) 0.2 (0.0-1.5) % Neut # (Auto) 12.4 H (1.4-5.7) K/uL Lymph # (Auto) 0.7 (0.6-2.4) K/uL [place] # (Auto) 1.8 H (0.0-0.8) K/uL Eos # (Auto) 0.0 (0.0-0.7) K/uL Baso # (Auto) 0.0 (0.0-0.1) K/uL Nucleated RBC % 0.0 /100WBC Nucleated RBCs # 0 K/uL Lactate 1.4 (0.20-2.00) mmol/L Sodium 133 L (136-148) mmol/L Potassium 4.5 (3.5-5.1) mmol/L Chloride 97 L (98-107) mmol/L Carbon Dioxide 23.7 (21.0-32.0) mmol/L BUN 20 H (7.0-18.0) mg/dL Creatinine 1.3 (0.8-1.3) mg/dL Est Cr Clr Drug Dosing 61.61 mL/min Estimated GFR (MDRD) 56.1 ml/min Glucose 126 H (74-106) mg/dL Calcium 8.5 (8.5-10.1) mg/dL Total Bilirubin 1.0 (0.2-1.0) mg/dL AST 27 (15-37) IU/L ALT 54 (14-63) IU/L Alkaline Phosphatase 114 (46-116) U/L Total Protein 7.9 (6.4-8.2) g/dL Albumin 3.5 (3.4-5.0) g/dL Globulin 4.4 H (2.6-4.0) g/dL Albumin/Globulin Ratio 0.8 L (0.9-1.6) Lipase 82 (73-393) U/L SARS Virus RNA (PCR) (NEGATIVE) 11/07/19 11/08/19 11/08/19 Range/Units 18:15 06:08 06:08 WBC 13.17 H (4.0-11.0) K/uL RBC 4.31 L (4.50-5.90) M/uL Hgb 12.6 L (13.0-17.0) g/dL Hct 38.4 (38.0-50.0) % MCV 89.1 (80.0-98.0) fL MCH 29.2 (27.0-32.0) pg MCHC 32.8 (31.0-37.0) g/dL RDW Std Deviation 48.9 (28.0-62.0) fl RDW Coeff of Neville 15 (11.0-15.0) % Plt Count 210 (150-400) K/uL MPV 9.60 (7.40-12.00) fL Neut % (Auto) 79.3 (48.0-80.0) % Lymph % (Auto) 9.2 L (16.0-40.0) % [place] % (Auto) 11.2 (0.0-15.0) % Eos % (Auto) 0.1 (0.0-7.0) % Baso % (Auto) 0.2 (0.0-1.5) % Neut # (Auto) 10.5 H (1.4-5.7) K/uL Lymph # (Auto) 1.2 (0.6-2.4) K/uL [place] # (Auto) 1.5 H (0.0-0.8) K/uL Eos # (Auto) 0.0 (0.0-0.7) K/uL Baso # (Auto) 0.0 (0.0-0.1) K/uL Nucleated RBC % 0.0 /100WBC Nucleated RBCs # 0 K/uL Lactate (0.20-2.00) mmol/L Sodium 135 L (136-148) mmol/L Potassium 4.1 (3.5-5.1) mmol/L Chloride 100 (98-107) mmol/L Carbon Dioxide 22.9 (21.0-32.0) mmol/L BUN 17 (7.0-18.0) mg/dL Creatinine 1.2 (0.8-1.3) mg/dL Est Cr Clr Drug Dosing 66.75 mL/min Estimated GFR (MDRD) > 60.0 ml/min Glucose 111 H (74-106) mg/dL Calcium 7.6 L (8.5-10.1) mg/dL Total Bilirubin (0.2-1.0) mg/dL AST (15-37) IU/L ALT (14-63) IU/L Alkaline Phosphatase (46-116) U/L Total Protein (6.4-8.2) g/dL Albumin (3.4-5.0) g/dL Globulin (2.6-4.0) g/dL Albumin/Globulin Ratio (0.9-1.6) Lipase (73-393) U/L SARS Virus RNA (PCR) NEGATIVE (NEGATIVE) Med Orders - Current: Current Medications Acetaminophen (Tylenol) 650 mg PO Q4H PRN PRN Reason: Pain (Mild 1-3)/fever Last Admin: 11/08/19 08:40 Dose: 650 mg Documented by: Allopurinol (Zyloprim) 300 mg PO DAILY [facility] Last Admin: 11/08/19 08:39 Dose: 300 mg Documented by: Enoxaparin Sodium (Lovenox) 40 mg SUBCUT Q24H [facility] Last Admin: 11/07/19 21:08 Dose: 40 mg Documented by: Lactated Ringer's (Ringers, Lactated) 1,000 mls @ 125 mls/hr IV ASDIRECTED [facility] Last Admin: 11/08/19 10:09 Dose: 125 mls/hr Documented by: Piperacillin Sod/Tazobactam (Sod 3.375 gm/ Sodium Chloride) 50 mls @ 100 mls/hr IV Q8H [facility] Last Admin: 11/08/19 06:03 Dose: 100 mls/hr Documented by: Morphine Sulfate (Morphine) 2 mg IVPUSH Q4H PRN PRN Reason: Pain (severe 7-10) Stop: 11/08/19 20:04 Ondansetron HCl (Zofran) 4 mg IVPUSH Q4H PRN PRN Reason: Nausea/Vomiting Sodium Chloride (Saline Flush) 10 ml FLUSH ASDIRECTED PRN PRN Reason: Keep Vein Open Last Admin: 11/07/19 17:06 Dose: 10 ml Documented by: Sodium Chloride (Saline Flush) 2.5 ml FLUSH ASDIRECTED PRN PRN Reason: Keep Vein Open Last Admin: 11/07/19 17:06 Dose: 2.5 ml Documented by: Discontinued Medications Sodium Chloride (Normal Saline) 1,000 mls @ 999 mls/hr IV STAT ONE Stop: 11/07/19 18:00 Last Admin: 11/07/19 17:06 Dose: 999 mls/hr Documented by: Meropenem 1 gm/ Sodium (Chloride) 100 mls @ 200 mls/hr IV ONETIME ONE Stop: 11/07/19 18:27 Last Admin: 11/07/19 18:35 Dose: 200 mls/hr Documented by: Vancomycin HCl 1.25 gm/ Sodium (Chloride) 250 mls @ 167 mls/hr IV ONETIME ONE Stop: 11/07/19 19:28 Vancomycin HCl 1.25 gm/ Sodium (Chloride) 250 mls @ 167 mls/hr IV ONETIME ONE Stop: 11/07/19 19:31 Last Admin: 11/07/19 18:36 Dose: 167 mls/hr Documented by: Ceftriaxone Sodium/Dextrose 1 (gm/ Premix) 50 mls @ 100 mls/hr IV Q24H [facility] - Exam Quality Assessment: DVT Prophylaxis General: Alert, Oriented, Cooperative, No Acute Distress Neck: Supple, Other (no nuchal rigidity) Lungs: Clear to Auscultation, Normal Respiratory Effort Cardiovascular: Regular Rate, Regular Rhythm GI/Abdominal Exam: Normal Bowel Sounds, Soft, Non-Tender, No Organomegaly Extremities: Normal Inspection, Normal Range of Motion, Non-Tender, No Pedal Edema Neurological: No New Focal Deficit Psy/Mental Status: Alert, Normal Affect, Normal Mood Sepsis Event Note - Evaluation Sepsis Screening Result: Sepsis Risk - Focused Exam Vital Signs: Vital Signs Temp Temp Pulse Resp BP Pulse Ox 11/08/19 08:40 99.7 F 11/08/19 07:45 99.2 F 94 18 112/66 93 L 11/08/19 04:00 99.3 F 94 18 100/56 L 95 11/08/19 01:55 101.4 F H 11/08/19 00:01 101.4 F H 114 H 18 120/58 L 98 - Problem List & Annotations (1) Sepsis SNOMED Code(s): 30781358 Code(s): A41.9 - SEPSIS, UNSPECIFIED ORGANISM Status: Acute Current Visit: Yes Qualifiers: Sepsis type: sepsis due to unspecified organism Severe sepsis acute organ dysfunction type: acute renal failure Acute renal failure type: unspecified Severe sepsis shock status: without septic shock (2) Complicated urinary tract infection SNOMED Code(s): 30168390 Code(s): N39.0 - URINARY TRACT INFECTION, SITE NOT SPECIFIED Status: Acute Current Visit: Yes (3) Prostatitis SNOMED Code(s): 9424924 Code(s): N41.9 - INFLAMMATORY DISEASE OF PROSTATE, UNSPECIFIED Status: Suspected Current Visit: Yes (4) Acute pyelonephritis SNOMED Code(s): 10390130 Code(s): N10 - ACUTE PYELONEPHRITIS Status: Suspected Current Visit: Yes (5) Gout SNOMED Code(s): 37171396 Code(s): M10.9 - GOUT, UNSPECIFIED Status: Chronic Current Visit: Yes (6) HTN (hypertension) SNOMED Code(s): 55136354 Code(s): I10 - ESSENTIAL (PRIMARY) HYPERTENSION Status: Chronic Current Visit: Yes Qualifiers: Hypertension type: essential hypertension Qualified Code(s): I10 - Essential (primary) hypertension (7) Obesity SNOMED Code(s): 871147347, 051097334 Code(s): E66.9 - OBESITY, UNSPECIFIED Status: Chronic Current Visit: Yes - Problem List Review Problem List Initiated/Reviewed/Updated: Yes - My Orders Last 24 Hours: My Active Orders 11/08/19 08:16 CULTURE BLOOD [BC] Routine 11/08/19 10:02 Patient Status [ADT] Routine - Plan Plan:: 59 y/o M Admitted for sepsis, acute complicated UTI, suspected pyelonephritis and suspected prostatitis 1. Sepsis secondary to acute complicated UTI likely prostatitis - Sepsis resolved. - BC and UC pending - Improving today, still not 100% feeling better - Leukocytosis improved. - Mild KENDRICK improved as well with IVFs. - Continue Zosyn - Hx of resistant E coli with previous UTI. - Will need referral to Urology as outpatient, but plans to return to [place] after discharge with . I counseled him that with recent UTIs he should see Urologist for concerns of prostatitis. - Rectal exam in clinic did not elicit extreme pain, but he does state urinating yesterday was difficult and today it has improved. - Continue IVFs for now. 2. HTN; - Stable, hold Lisinopril for now. VTE prophylaxis: Lovenox Dispo: will make inpatient today, due to the need for more that 2 midnight stay.
[2019-11-08] MEDS: Enoxaparin 40 MG/0.4 ML Syringe SUBCUT SCH (19:59)
[2019-11-09] MEDS: Lactated Ringers 1,000 ML IV SCH ×2 (03:11→13:29)
[2019-11-09] MEDS: Piperacillin/Tazobactam 3.375 GM in Sodium Chloride 0.9% 50 ML IV SCH ×3 (06:18→21:00)
[2019-11-09] MEDS: Acetaminophen 325 MG Tab PO PRN (06:24)
[2019-11-09 06:49] LABS: CARBON DIOXIDE,CO2 24.6 mmol/L (21.0-32.0); POTASSIUM,K 3.7 mmol/L (3.5-5.1)
[2019-11-09] MEDS ORDERED: Magnesium Sulfate/Water 2 GM in Premix Bag 1 BAG IV ONE (08:24)
[2019-11-09] MEDS: Allopurinol 300 MG Tab PO SCH (08:52)
--- NOTE | 2019-11-09 11:41 | PCM.PN ---
- General Info Date of Service: 11/09/19 - Review of Systems Systems Review Comment:: feeling better, had fever this morning - Patient Data Vitals - Most Recent: Last Vital Signs Temp 36.9 C 11/09/19 08:58 Pulse 97 11/09/19 07:40 Resp 18 11/09/19 07:40 BP 133/73 11/09/19 07:40 Pulse Ox 93 L 11/09/19 07:40 Weight - Most Recent: 123.831 kg I&O - Last 24 Hours: Intake & Output 11/08/19 11/09/19 11/09/19 22:59 06:59 14:59 Intake Total 2404 1632 Output Total 1050 1455 Balance 1354 177 Lab Results Last 24 Hours: Laboratory Results - last 24 hr 11/09/19 11/09/19 Range/Units 05:20 05:20 WBC 8.93 (4.0-11.0) K/uL RBC 4.17 L (4.50-5.90) M/uL Hgb 12.1 L (13.0-17.0) g/dL Hct 37.2 L (38.0-50.0) % MCV 89.2 (80.0-98.0) fL MCH 29.0 (27.0-32.0) pg MCHC 32.5 (31.0-37.0) g/dL RDW Std Deviation 48.9 (28.0-62.0) fl RDW Coeff of Neville 15 (11.0-15.0) % Plt Count 226 (150-400) K/uL MPV 10.30 (7.40-12.00) fL Add Manual Diff YES Neutrophils % (Manual) 73 (48.0-80.0) % Band Neutrophils % 7 % Lymphocytes % (Manual) 12 L (16.0-40.0) % Monocytes % (Manual) 8 (0.0-15.0) % Nucleated RBC % 0.0 /100WBC Absolute Seg Neuts 6.5 H (1.4-5.7) Band Neutrophils # 0.6 Lymphocytes # (Manual) 1.1 (0.6-2.4) Monocytes # (Manual) 0.7 (0.0-0.8) Nucleated RBCs # 0 K/uL Sodium 137 (136-148) mmol/L Potassium 3.7 (3.5-5.1) mmol/L Chloride 101 (98-107) mmol/L Carbon Dioxide 24.6 (21.0-32.0) mmol/L BUN 18 (7.0-18.0) mg/dL Creatinine 1.4 H (0.8-1.3) mg/dL Est Cr Clr Drug Dosing 57.21 mL/min Estimated GFR (MDRD) 51.5 ml/min Glucose 91 (74-106) mg/dL Calcium 8.8 (8.5-10.1) mg/dL Magnesium 1.7 L (1.8-2.4) mg/dL Perez Results Last 24 Hours: Microbiology 11/07/19 00:00 Aerobic Blood Culture - Preliminary Blood NO GROWTH AFTER 1 DAY Anaerobic Blood Culture - Preliminary NO GROWTH AFTER 1 DAY 11/07/19 20:00 Urine Culture - Final Urine, Clean Catch MIXED KAMRAN <1000 CFU/ML Med Orders - Current: Current Medications Acetaminophen (Tylenol) 650 mg PO Q4H PRN PRN Reason: Pain (Mild 1-3)/fever Last Admin: 11/09/19 06:24 Dose: 650 mg Documented by: Allopurinol (Zyloprim) 300 mg PO DAILY [facility] Last Admin: 11/09/19 08:52 Dose: 300 mg Documented by: Enoxaparin Sodium (Lovenox) 40 mg SUBCUT Q24H [facility] Last Admin: 11/08/19 19:59 Dose: 40 mg Documented by: Lactated Ringer's (Ringers, Lactated) 1,000 mls @ 75 mls/hr IV ASDIRECTED [facility] Last Admin: 11/09/19 03:11 Dose: 125 mls/hr Documented by: Piperacillin Sod/Tazobactam (Sod 3.375 gm/ Sodium Chloride) 50 mls @ 100 mls/hr IV Q8H [facility] Last Admin: 11/09/19 06:18 Dose: 100 mls/hr Documented by: Ondansetron HCl (Zofran) 4 mg IVPUSH Q4H PRN PRN Reason: Nausea/Vomiting Sodium Chloride (Saline Flush) 10 ml FLUSH ASDIRECTED PRN PRN Reason: Keep Vein Open Last Admin: 11/07/19 17:06 Dose: 10 ml Documented by: Sodium Chloride (Saline Flush) 2.5 ml FLUSH ASDIRECTED PRN PRN Reason: Keep Vein Open Last Admin: 11/07/19 17:06 Dose: 2.5 ml Documented by: Discontinued Medications Sodium Chloride (Normal Saline) 1,000 mls @ 999 mls/hr IV STAT ONE Stop: 11/07/19 18:00 Last Admin: 11/07/19 17:06 Dose: 999 mls/hr Documented by: Meropenem 1 gm/ Sodium (Chloride) 100 mls @ 200 mls/hr IV ONETIME ONE Stop: 11/07/19 18:27 Last Admin: 11/07/19 18:35 Dose: 200 mls/hr Documented by: Vancomycin HCl 1.25 gm/ Sodium (Chloride) 250 mls @ 167 mls/hr IV ONETIME ONE Stop: 11/07/19 19:28 Vancomycin HCl 1.25 gm/ Sodium (Chloride) 250 mls @ 167 mls/hr IV ONETIME ONE Stop: 11/07/19 19:31 Last Admin: 11/07/19 18:36 Dose: 167 mls/hr Documented by: Ceftriaxone Sodium/Dextrose 1 (gm/ Premix) 50 mls @ 100 mls/hr IV Q24H [facility] Magnesium Sulfate 2 gm/ Premix 50 mls @ 50 mls/hr IV ONETIME ONE Stop: 11/09/19 09:23 Last Admin: 11/09/19 08:52 Dose: 50 mls/hr Documented by: Morphine Sulfate (Morphine) 2 mg IVPUSH Q4H PRN PRN Reason: Pain (severe 7-10) Stop: 11/08/19 20:04 - Exam General: Alert, Oriented Neck: Supple Lungs: Clear to Auscultation, Normal Respiratory Effort Cardiovascular: Regular Rate, Regular Rhythm GI/Abdominal Exam: Soft, Non-Tender Extremities: Non-Tender, No Pedal Edema Skin: Warm, Dry, Intact Neurological: No New Focal Deficit Sepsis Event Note - Evaluation Sepsis Screening Result: No Definite Risk - Focused Exam Vital Signs: Vital Signs Temp Temp Pulse Resp BP Pulse Ox 11/09/19 08:58 36.9 C 11/09/19 07:40 38.3 C H 97 18 133/73 93 L 11/09/19 06:24 38.6 C H 11/09/19 04:00 37.3 C 102 H 20 120/70 90 L 11/08/19 23:46 36.8 C 94 20 114/78 95 - Problem List Review Problem List Initiated/Reviewed/Updated: Yes - My Orders Last 24 Hours: My Active Orders 11/10/19 05:11 BASIC METABOLIC PANEL,BMP [CHEM] AM CBC WITH AUTO DIFF [HEME] AM - Plan Plan:: 59 y/o M Admitted for sepsis, acute complicated UTI, suspected pyelonephritis 1. Sepsis secondary to acute complicated UTI -continue zosyn, repeat cultures pending 2. HTN; - Stable, hold Lisinopril for now. VTE prophylaxis: Lovenox
[2019-11-09] MEDS: Ibuprofen 200 MG Tab PO ONE ×2 (16:22→16:43)
[2019-11-09] MEDS: Enoxaparin 40 MG/0.4 ML Syringe SUBCUT SCH (20:52)
[2019-11-10] MEDS: Piperacillin/Tazobactam 3.375 GM in Sodium Chloride 0.9% 50 ML IV SCH (05:57)
[2019-11-10 07:09] LABS: BLOOD UREA NITROGEN,BUN 14 mg/dL (7.0-18.0); CARBON DIOXIDE,CO2 23.6 mmol/L (21.0-32.0); CHLORIDE,CL 101 mmol/L (98-107); GLUCOSE RANDOM 105 mg/dL (74-106); POTASSIUM,K 3.4 mmol/L (3.5-5.1); SODIUM,NA 137 mmol/L (136-148)
[2019-11-10] MEDS ORDERED: Potassium Chloride 20 MEQ Tab.ER PO ONE (07:51)
[2019-11-10] MEDS: Allopurinol 300 MG Tab PO SCH (08:10)
[2019-11-10 12:16] VITALS: BP 129/80; PULSE 87
--- NOTE | 2019-11-10 14:50 | PCM.DCSUM1 ---
Discharge Summary - Hospital Course Free Text/Narrative:: 59-year-old male admitted for Complicated UTI with possible pyelonephritis and prostatitis. He has a PMH of obesity, HTN. Patient has a history of recurrent UTI's, which he states he has been treated for with oral antibiotics, as well as bouts of reduced urine flow with urgency. Patient was treated with IV antibiotics and pain control during admission. Patient on discharge was prescribed Levaquin and urged to follow up with a Urologist in [place], where he states he is going. - Discharge Data Discharge Date: 11/10/19 Discharge Disposition: Home, Self-Care 01 Condition: Fair - Referral to Home Health Primary Care Physician: [facility] - Discharge Plan *PRESCRIPTION DRUG MONITORING PROGRAM REVIEWED*: Not Applicable *COPY OF PRESCRIPTION DRUG MONITORING REPORT IN PATIENT DIDIER: Not Applicable Prescriptions/Med Rec: levoFLOXacin [Levofloxacin] 750 mg PO DAILY 14 Days #14 tablet Home Medications: Home Meds Allopurinol [Zyloprim] 300 mg PO DAILY 09/18/19 [History] lisinopriL [Lisinopril] 20 mg PO DAILY 09/18/19 [History] levoFLOXacin [Levofloxacin] 750 mg PO DAILY 14 Days #14 tablet 11/10/19 [Rx] Patient Handouts: Pyelonephritis, Adult, [id number], Levofloxacin tablets Referrals: Fatou Gutierrez NP [Nurse Practitioner] - 11/15/19 3:30 pm - Discharge Summary/Plan Comment DC Time >30 min.: No - General Info Date of Service: 11/10/19 Subjective Update: Denies fever, chills, nausea, abdominal pain, back pain, dysuria, hematuria. States that he would like to go home. - Review of Systems General: Denies: Fever, Weakness, Fatigue HEENT: Denies: Headaches Pulmonary: Denies: Shortness of Breath, Pleuritic Chest Pain, Cough Cardiovascular: Denies: Chest Pain, Palpitations, Dyspnea on Exertion Gastrointestinal: Denies: Abdominal Pain, Diarrhea, Nausea Genitourinary: Denies: Dysuria, Frequency, Burning, Urgency, Flank Pain Neurological: Denies: Dizziness, Headache, Numbness - Patient Data Vitals - Most Recent: Last Vital Signs Temp 98.4 F 11/10/19 12:00 Pulse 87 11/10/19 12:00 Resp 18 11/10/19 12:00 BP 129/80 11/10/19 12:00 Pulse Ox 96 11/10/19 12:00 Weight - Most Recent: 273 lb I&O - Last 24 hours: Intake & Output 11/09/19 11/10/19 11/10/19 22:59 06:59 14:59 Intake Total 1760 1109 Output Total 1550 1225 Balance 210 -116 Lab Results - Last 24 hrs: Laboratory Results - last 24 hr 11/10/19 11/10/19 Range/Units 05:50 05:50 WBC 5.86 (4.0-11.0) K/uL RBC 4.12 L (4.50-5.90) M/uL Hgb 12.0 L (13.0-17.0) g/dL Hct 36.2 L (38.0-50.0) % MCV 87.9 (80.0-98.0) fL MCH 29.1 (27.0-32.0) pg MCHC 33.1 (31.0-37.0) g/dL RDW Std Deviation 46.7 (28.0-62.0) fl RDW Coeff of Neville 15 (11.0-15.0) % Plt Count 247 (150-400) K/uL MPV 10.30 (7.40-12.00) fL Add Manual Diff YES Neutrophils % (Manual) 66 (48.0-80.0) % Band Neutrophils % 7 % Lymphocytes % (Manual) 14 L (16.0-40.0) % Monocytes % (Manual) 10 (0.0-15.0) % Eosinophils % (Manual) 3 (0.0-7.0) % Absolute Seg Neuts 3.9 (1.4-5.7) Band Neutrophils # 0.4 Lymphocytes # (Manual) 0.8 (0.6-2.4) Monocytes # (Manual) 0.6 (0.0-0.8) Eosinophils # (Manual) 0.2 (0.0-0.7) Sodium 137 (136-148) mmol/L Potassium 3.4 L (3.5-5.1) mmol/L Chloride 101 (98-107) mmol/L Carbon Dioxide 23.6 (21.0-32.0) mmol/L BUN 14 (7.0-18.0) mg/dL Creatinine 1.2 (0.8-1.3) mg/dL Est Cr Clr Drug Dosing 66.75 mL/min Estimated GFR (MDRD) > 60.0 ml/min Glucose 105 (74-106) mg/dL Calcium 8.6 (8.5-10.1) mg/dL Magnesium 1.8 (1.8-2.4) mg/dL ARTI Results - Last 24 hrs: Microbiology 11/07/19 00:00 Aerobic Blood Culture - Preliminary Blood NO GROWTH AFTER 2 DAYS Anaerobic Blood Culture - Preliminary NO GROWTH AFTER 2 DAYS Med Orders - Current: Current Medications Discontinued Medications Acetaminophen (Tylenol) 650 mg PO Q4H PRN PRN Reason: Pain (Mild 1-3)/fever Last Admin: 11/09/19 06:24 Dose: 650 mg Documented by: Allopurinol (Zyloprim) 300 mg PO DAILY [facility] Last Admin: 11/10/19 08:10 Dose: 300 mg Documented by: Enoxaparin Sodium (Lovenox) 40 mg SUBCUT Q24H [facility] Last Admin: 11/09/19 20:52 Dose: 40 mg Documented by: Sodium Chloride (Normal Saline) 1,000 mls @ 999 mls/hr IV STAT ONE Stop: 11/07/19 18:00 Last Admin: 11/07/19 17:06 Dose: 999 mls/hr Documented by: Meropenem 1 gm/ Sodium (Chloride) 100 mls @ 200 mls/hr IV ONETIME ONE Stop: 11/07/19 18:27 Last Admin: 11/07/19 18:35 Dose: 200 mls/hr Documented by: Vancomycin HCl 1.25 gm/ Sodium (Chloride) 250 mls @ 167 mls/hr IV ONETIME ONE Stop: 11/07/19 19:28 Vancomycin HCl 1.25 gm/ Sodium (Chloride) 250 mls @ 167 mls/hr IV ONETIME ONE Stop: 11/07/19 19:31 Last Admin: 11/07/19 18:36 Dose: 167 mls/hr Documented by: Lactated Ringer's (Ringers, Lactated) 1,000 mls @ 75 mls/hr IV ASDIRECTED [facility] Last Admin: 11/09/19 13:29 Dose: 125 mls/hr Documented by: Ceftriaxone Sodium/Dextrose 1 (gm/ Premix) 50 mls @ 100 mls/hr IV Q24H [facility] Piperacillin Sod/Tazobactam (Sod 3.375 gm/ Sodium Chloride) 50 mls @ 100 mls/hr IV Q8H [facility] Last Admin: 11/10/19 05:57 Dose: 100 mls/hr Documented by: Magnesium Sulfate 2 gm/ Premix 50 mls @ 50 mls/hr IV ONETIME ONE Stop: 11/09/19 09:23 Last Admin: 11/09/19 08:52 Dose: 50 mls/hr Documented by: Ibuprofen (Motrin) 200 mg PO ONETIME ONE Stop: 11/09/19 13:58 Last Admin: 11/09/19 16:43 Dose: 200 mg Documented by: Morphine Sulfate (Morphine) 2 mg IVPUSH Q4H PRN PRN Reason: Pain (severe 7-10) Stop: 11/08/19 20:04 Ondansetron HCl (Zofran) 4 mg IVPUSH Q4H PRN PRN Reason: Nausea/Vomiting Potassium Chloride (Klor-Con M20) 40 meq PO ONETIME ONE Stop: 11/10/19 07:52 Last Admin: 11/10/19 08:09 Dose: 40 meq Documented by: Sodium Chloride (Saline Flush) 10 ml FLUSH ASDIRECTED PRN PRN Reason: Keep Vein Open Last Admin: 11/07/19 17:06 Dose: 10 ml Documented by: Sodium Chloride (Saline Flush) 2.5 ml FLUSH ASDIRECTED PRN PRN Reason: Keep Vein Open Last Admin: 11/07/19 17:06 Dose: 2.5 ml Documented by: - Exam General: Reports: Oriented Lungs: Reports: Clear to Auscultation, Normal Respiratory Effort Cardiovascular: Reports: Regular Rate, Regular Rhythm GI/Abdominal Exam: Soft, Non-Tender, No Distention Back Exam: Denies: CVA Tenderness (L), CVA Tenderness (R) Skin: Reports: Warm, Dry Psy/Mental Status: Reports: Alert, Normal Affect
== END 2019-11-10 12:45 | disposition home or self-care (01) | DRG 720 ==
LOC: MW.ED 16:40 → MW.MS 19:00 → OBSVTOIN 11-08 10:02 → MW.MS 11-08 17:28
PROVIDERS: ADMIT Student in an Organized Health Care Education/Training Program; ATTEND Student in an Organized Health Care Education/Training Program
DX: A41.9 Sepsis, unspecified organism (principal); N10 Acute pyelonephritis; M10.9 Gout, unspecified; I10 Essential (primary) hypertension; R65.20 Severe sepsis without septic shock; N17.9 Acute kidney failure, unspecified; Z20.828 Contact with and (suspected) exposure to other viral communicable diseases; N41.9 Inflammatory disease of prostate, unspecified; Z79.899 Other long term (current) drug therapy
CPT/HCPCS: 36415; 71046; 71046-26; 74176; 74176-26; 80048; 80053; 83605; 83690; 83735; 85025; 87040; 87086; 93005; 96361; 96365; 96367; 96372; 96376; 99285; 99285-25; A9270-GY; G0378; J1650; J2185; J2543; J3370; J3475; J7030; J7050; J7120; U0002